=== PATIENT | male | born 1970 | race Caucasian/White ===

== ENCOUNTER 2019-09-21 00:38 | Observation (INO) | payer BC, SELFPAY ==
[2019-09-21] VITALS (9 sets, daily range): BP systolic 103–156; BP diastolic 71–100; PULSE 62–96; RESP 13–19; TEMP 36.4–36.8; O2SAT 97–100; BMI 23.4
--- NOTE | ~2019-09-21 | XR_ITS ---
EXAMINATION: XR barium swallow modified DATE: 09/22/2019 09:24 INDICATION: Dysphagia. TECHNIQUE: Modified barium esophagram was performed by myself to administered fluoroscopy, in conjun ction with speech pathologist who administered barium in varying consistencies as per speech patholog ist documentation. This was recorded on tape. A single fluoroscopic spot image was recorded. The DA P for this procedure was 1.95 Gycm2. Fluoroscopy exposure time was 1.9 minutes. FINDINGS: Oral stage: Adequate function. Pharyngeal phase: Vallecular and piriform sinus residue present which clears with additional swallows . Laryngeal penetration: None. Aspiration: None. Laryngeal sensitivity: Present. IMPRESSION: Vallecular and piriform sinus residue which clears with additional swallows. Please refe r to speech pathologist findings and specific feeding recommendations. Reviewed, dictated and finalized at location A. F APPRAISER IMPRESSION: Vallecular and piriform sinus residue which clears with additional swallows. Please refer to speech pathologist findings and specific feeding rec ommendations.
--- NOTE | ~2019-09-21 | CT_ITS ---
EXAMINATION: CTA chest PE protocol DATE: 09/21/2019 01:51 INDICATION: Left-sided chest pain TECHNIQUE: Computed tomography angiography (CTA) of the chest was performed with 100 mL Omnipaque-350 intravenous contrast timed to evaluate the pulmonary arteries. Coronal maximum intensity projection 3D-reconstructions were created by the technologist. The dose-length product (DLP) was 326.28 mGy-cm. Automated exposure control and iterative reconstruction technique were employed. COMPARISON: 01/29/2019 FINDINGS: The pulmonary arteries are well-opacified. No pulmonary embolism is identified. There is a 4.9 x 3.2 cm thick walled cavitary mass of the left lower lobe which has previously undergone biopsy. There is a 3.2 x 1.4 cm cavitary mass of the left lower lobe which also demonstrates decrease in siz e. There is no significant change in innumerable small upper lobe predominant centrilobular groundgla ss opacities. There is a small left pleural effusion. No pneumothorax is identified. The heart size i s normal. There is chronic mild mediastinal and bilateral hilar lymphadenopathy. There is mild thorac ic spondylosis. IMPRESSION: 1. No pulmonary embolism. 2. Decrease in size of cavitary masses of the lower lobes, consistent with biopsy-proven chronic necr otizing granulomatous inflammation. 3. Unchanged upper lobe predominance centrilobular groundglass opacities with differential as previou sly described including atypical pneumonia and hypersensitivity pneumonitis. 4. Chronic mild mediastinal and bilateral hilar lymphadenopathy, likely reactive. Reviewed, dictated and finalized at location A. [employer] IMPRESSION: 1. No pulmonary embolism. 2. Decrease in size of cavitary masses of the lower lobes, consistent with biop sy-proven chronic necrotizing granulomatous inflammation. 3. Unchanged upper lobe predominance centrilobular groundglass opacities with d ifferential as previously described including atypical pneumonia and hypersensi tivity pneumonitis. 4. Chronic mild mediastinal and bilateral hilar lymphadenopathy, likely reactiv e.
--- NOTE | 2019-09-21 00:53 | ECG_ITS ---
Measurements Intervals [place] Rate: 92 P: 54 KS: 126 QRS: 9 QRSD: 69 T: 44 QT: 323 QTc: 401 Interpretive Statements SINUS RHYTHM BASELINE ARTIFACT- I, II, III, AVR, AVL, AVF, V1 NORMAL ECG Electronically Signed On 09-21-2019 7:08:05 VISUAL MERCHANDISING MANAGER by Benjamin Hardin D.O.
[2019-09-21] MEDS: ASPIRIN 81 MG CHEWABLE TABLET 324 MG PO (00:56)
--- NOTE | 2019-09-21 01:01 | ED.CHESTPAIN ---
HPI - Chest Pain General Chief Complaint: Chest Pain Stated Complaint: chest pain Time Seen by Provider: 09/21/19 00:46 Source: patient and RN notes reviewed Mode of arrival: ambulatory Limitations: no limitations History of Present Illness HPI narrative: Pt is a 49 y/o male who presents to the ED with c/o left-sided chest pain which began at 2230 tonight. He states the pain feels like a soreness. Pt states he was getting into bed when the pain began, and has progressively worsened since onset. He reports his pain is aggravated when he takes a deep breath or when he is laying down. He denies a cough, a fever, chills, diaphoresis, or BLE edema. MD complaint: chest pain (left-sided) Onset (ago): hour(s) (2230 tonight) Timing of current episode: constant and increasing (since onset) Prior episodes: No Onset: during rest (getting into bed) Pain location: left chest Pain radiation: none Quality: other (soreness) Relieving factors: nothing Exacerbating factors: other (laying down; taking a deep breath) Associated symptoms: other (none) Related Data Home Medications Medication Instructions Recorded Confirmed No Home Medications 09/21/19 09/21/19 Allergies Allergy/AdvReac Type Severity Reaction Status Date / Time amoxicillin Allergy Unknown Rash Verified 09/21/19 03:56 Review of Systems Review of Systems: All systems reviewed & are unremarkable except as noted in HPI and below Constitutional: Constitutional: Denies chills and Denies fever(s) Cardiovascular: Cardiovascular: Reports chest pain (left-sided), Denies diaphoresis and Denies leg edema (BLE) Respiratory: Respiratory: Denies cough PMFSH Past Medical History Medical History (Updated 09/21/19 @ 16:39 by Leandro Erickson MD) Histoplasmosis Surgical History Surgical History (Updated 09/21/19 @ 16:39 by Leandro Erickson MD) History of lung biopsy Family History Family History (Updated 12/23/18 @ 09:53 by DOCTOR UNKNOWN) Father Diabetes mellitus Mother Diabetes mellitus Social History Social History Smoking packs per day: 1 Smoking cigarettes per day: 20.0 Years smoked: 30 Smoking pack-years: 30.00 Smoking status: Heavy tobacco smoker Tobacco type: cigarettes Additional smoking assessment comments: pt states he wants to quit smoking Alcohol intake: former Substance use: current Substance use type: marijuana Other substance usage details: pt states he uses marijuana to manage pain Gender identity (if verbalized by the patient): Male Spiritual care concerns: No Agree to blood products: Yes Course Course Emergency Course: Patient informed of results. Suspect reactivation of his histoplasmosis. He saw Dr. Painter Everardo Ridley previously for his treatment and had been on 6 months of itraconazole. Patient also reports history of chronically elevated white blood cell count but is unsure what the values have been in the past. Will start on micafungin as that is what we have on formulary. Admit to the hospitalist service. Vital Signs Vital signs: Vital Signs Temperature 98.3 F 09/21/19 00:43 Pulse Rate 90 09/21/19 00:43 Respiratory Rate 19 09/21/19 00:43 Blood Pressure 156/100 H 09/21/19 00:43 Pulse Oximetry 98 09/21/19 00:43 Temperature 97.8 F 09/21/19 14:00 Pulse Rate 83 09/21/19 14:00 Respiratory Rate 16 09/21/19 14:00 Blood Pressure 121/80 09/21/19 14:00 Pulse Oximetry 99 09/21/19 14:00 MDM - Chest Pain Lab Data Result diagrams: 09/21/19 01:01 09/21/19 01:01 Labs: Lab Results 09/21/19 09/21/19 09/21/19 Range/Units 01:01 01:01 01:01 WBC 22.8 H (4.5-10.0) K/mm3 RBC 5.14 (4.6-6.20) M/mm3 Hgb 15.3 (14.0-18.0) g/dL Hct 46.1 (42.0-52.0) % MCV 89.7 (80-100) fl MCH 29.8 (26-34) pg MCHC 33.2 (32-36) g/dl RDW 12.9 (11.5-14.5) % Plt Count 329 (150-375) k/mm3 MPV 9.4 (7.4-10.4) fl Im
[2019-09-21 01:08] LABS: Basophils Absolute Auto 0.1 K/mm3 (0.0-0.1); Basophils Percent Auto 0.6 % (0.2-1.2); Eosinophils Absolute Auto 0.5 K/mm3 (0-0.3); Eosinophils Percent Auto 2.4 % (0-4.4); Hematocrit 46.1 % (42.0-52.0); Hemoglobin 15.3 g/dL (14.0-18.0); Immature Granulocyte Absolute 0.12 K/mm3 (0.00-0.031); Immature Granulocyte Percent A 0.5 % (0-0.5); Lymphocytes Absolute Auto 3.02 K/mm3 (0.9-3.2); Lymphocytes Percent Auto 13.3 % (18.3-44.2); Mean Corpuscular HGB Conc 33.2 g/dl (32-36); Mean Corpuscular Hemoglobin 29.8 pg (26-34); Mean Corpuscular Volume 89.7 fl (80-100); Mean Platelet Volume 9.4 fl (7.4-10.4); Monocytes Absolute Auto 1.7 K/mm3 (0.1-0.6); Monocytes Percent Auto 7.5 % (2.6-8.5); Neutrophils Absolute Auto 17.3 K/mm3 (1.3-6.7); Neutrophils Percent Auto 75.7 % (45.5-73.1); Platelet Count Result 329 k/mm3 (150-375); Red Blood Count 5.14 M/mm3 (4.6-6.20); Red Cell Distribution Width 12.9 % (11.5-14.5); White Blood Count 22.8 K/mm3 (4.5-10.0)
[2019-09-21] MEDS: MORPHINE SULFATE 4 MG/ML INJ IV PUSH ×4 (01:15→15:55)
[2019-09-21 01:17] LABS: INR 0.8; Prothrombin Time 11.2 Seconds (11.1-14.7)
[2019-09-21 01:18] LABS: Partial Thromboplastin Time 34.3 SECONDS (22.3-36.8)
[2019-09-21 01:35] LABS: Blood Urea Nitrogen 17 mg/dL (9-20); Calcium 10.4 mg/dL (8.4-10.2); Carbon Dioxide 31 mmol/L (22-30); Chloride 97 mmol/L (98-107); Estimated CRCL calculation 85 ml/min; Estimated Glomerular Filt Rate > 60; Glucose 104 mg/dL (75-110); Potassium 3.6 mmol/L (3.4-5.0); Sodium 139 mmol/L (137-145)
[2019-09-21 01:46] LABS: Troponin I < 0.012 ng/mL (0.000-0.034)
[2019-09-21 04:15] LABS: Troponin I < 0.012 ng/mL (0.000-0.034)
--- NOTE | 2019-09-21 05:15 | ADMGEN ---
This patient, Tristin Marques, was admitted to 3 [facility] Surg Room 302-01. Patient/family oriented to hospital policies and general routines including ID bracelet, bed and alarms, visiting hours, pain management, procedures, bathroom and other care routines, personal items, smoking policy, room service/diet, and visiting hours. Valuables list has been completed. Information on how to activate the Rapid Response Team has been discussed. Patient/Family are encouraged to report perceived risks to care and to ask questions if they do not understand what they are told or what they should do.
[2019-09-21 07:53] LABS: Troponin I < 0.012 ng/mL (0.000-0.034)
[2019-09-21] MEDS: MICAFUNGIN SODIUM 100 MG in SODIUM CHLORIDE 0.9% IV 100 ML IVPB (08:53)
--- NOTE | 2019-09-21 14:31 | ECHO_ITS ---
Patient Info Name: Tirstin Marques Age: 49 years : 1970 Gender: Male Ht: 69 in Wt: 158 lbs BSA: 1.87 m2 HR: 83 bpm BP: 121 / 80 mmHg Heart Rhythm: Sinus Rhythm Technical Quality: Fair Exam Date: 09/21/2019 2:56 PM Exam Location: [facility] Card Pulmonary Patient Status: Outpatient Admit Date: 09/21/2019 Staff Ordering Physician: Kimberly Nance PA-C Senior Systems Administrator: Jaylin Muñiz RDCS Attending Provider: Melva Wong DO Referring Physician: Lee Ann RUTLEDGE; Exam Type: CA echo doppler color flow Study Info Indications R07.89 - Other chest pain Complete two-dimensional, color flow and Doppler transthoracic echocardiogram is performed. Summary 1. Left ventricular chamber size, wall thickness, systolic function are normal with no regional wall motion abnormalities with an estimated ejection fraction of >70%. Possible diastolic dysfunction. 2. No pulmonary hypertension, estimated pulmonary arterial systolic pressure is 31 mmHg. 3. No significant valve disease. 4. Normal sinus rhythm. Left Ventricle Left ventricular chamber size, wall thickness, systolic function are normal with no regional wall motion abnormalities with an estimated ejection fraction of >70%. Possible diastolic dysfunction. Left ventricular chamber dimension is normal. Left ventricular systolic function is normal, estimated at >70%. There is no increased left ventricular wall thickness. Left ventricular septal wall motion is normal. The left ventricular diastolic function is grade III diastolic dysfunction. Right Ventricle Right ventricular chamber dimension is normal. Right ventricular systolic function is normal. Left Atria Left atrial chamber dimension is normal. Right Atria Right atrial chamber dimension is normal. Aortic Valve The aortic valve is trileaflet. There is no aortic valve sclerosis. There is no aortic valve stenosis. There is no aortic valve regurgitation. Pulmonic Valve The pulmonic valve is normal. There is no pulmonic valve stenosis. There is no pulmonic regurgitation. Mitral Valve The mitral valve has normal leaflets. There is no mitral valve stenosis. There is trace mitral valve regurgitation. Tricuspid Valve The tricuspid valve leaflets are normal. There is no significant tricuspid valve stenosis. There is trace tricuspid valve regurgitation. No pulmonary hypertension, estimated pulmonary arterial systolic pressure is 31 mmHg. Pericardium/Pleural The pericardium appears normal. There is no pericardial effusion. Inferior Vena Cava Normal inferior vena cava with >50% collapse upon inspiration consistent with normal right atrial pressure, 10 mmHg. Aorta The aortic root size at the sinus of Valsalva is normal. The prox ascending aorta size is normal. Left Ventricular Outflow Tract Name Value Normal LVOT 2D LVOT Diameter 2.0 cm LVOT Doppler LVOT Peak Velocity 107 cm/s LVOT Peak Gradient 5 mmHg LVOT Mean Gradient 2 mmHg LVOT VTI 23 cm LV
--- NOTE | 2019-09-21 14:50 | PM.IMHP ---
H&P: HPI History of Present Illness Chief complaint: Left chest pain. Narrative: Tristin Marques is a 49 year old male with history of histoplasmosis who presented to the emergency department just after midnight for evaluation of chest pain. He reports a gradual onset of left anterolateral chest pain last evening at around 22:30. He describes a pleuritic pain, as it is sharp and shooting, worse with cough and deep inspiration. The pain does not radiate. It seems to be worse when lying supine. He assumed that it was pleurisy as he has had that before. Unfortunately the pain became quite severe and thus he came in for evaluation. No pulmonary embolism was noted on CTA of the chest. It was also noted that he had a decrease in the size of cavitary masses of the lower lobes, consistent with biopsy-proven chronic necrotizing granulomatous inflammation as well as other chronic findings. White blood cell count was nearly 23,000 with an increase in neutrophils on automated differential. There was concern for active infection and he was admitted in that setting. He did have nausea and emesis x1 this morning but that has since resolved. With further questioning, he has not had fever, chills, or sweats. Weight has remained stable. he has chronic hip pain, which is unchanged, and he has had no other body aches. He has not had a cough. Most nights he has mild sinus congestion for which she uses nasal spray, and that is unchanged. He does suffer from GERD and rare dysphagia, without concerns for aspiration. He has not had exertional chest pain. No palpitations or lower extremity edema. Review of Systems Review of Systems: Narrative: Twelve systems were reviewed with pertinent positives and negatives as per HPI. His weight fluctuates between 150 to 180 pounds ?depending on how hungry I am.? Apparently he does not have a big appetite. He sleeps poorly, and has since he was a child. No issues falling asleep with trouble is mainly with staying asleep. He denies PND and history of sleep apnea. No diarrhea. No dysuria. Except as documented, all other systems were reviewed and are negative. [facility]LY [facility] Past Medical History Medical History (Updated 09/21/19 @ 16:58 by Kimberly Nance PA-C) GERD (gastroesophageal reflux disease) Histoplasmosis After an extensive workup, he was diagnosed with histoplasmosis and he finished a 6 month course of itraconazole and July 2019. Hyperlipidemia Osteoarthritis of hips, bilateral Tobacco dependence Surgical History Surgical History (Updated 09/21/19 @ 16:46 by Kimberly Nance PA-C) History of lung biopsy January 2019 demonstrating chronic necrotizing granulomatous inflammation. Status post tonsillectomy Family History Family History Father Diabetes mellitus Mother Diabetes mellitus Social History Social History (Updated 09/21/19 @ 16:49 by Kimberly Nance PA-C) Social History: The patient lives in [place] with his girlfriend. 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 He designates his mother, Christine, as his surrogate decision maker and he wishes to be a full code. He smokes 1 pack of cigarettes per day and has for over 30 years. He used to consume alcohol heavily, but has abstained since 2012. He does smoke marijuana to help with arthritic pain. Smoking packs per day: 1 Smoking cigarettes per day: 20.0 Years smoked: 30 Smoking pack-years: 30.00 Gender identity (if verbalized by the patient): Male Spiritual care concerns: No Agree to blood products: Yes Meds Home Medications and Allergies Home Medications Medication Instructions Recorded Confirmed Type No Home Medications 09/21/19 09/21/19 History Allergies Allergy/AdvReac Type Severity Reaction Status Date / Time amoxicillin Allergy Unknown Rash Verified 09/21/19 03:56 Vital Signs Vital Signs - 24 hr 09/21/19 00:43 09/21/19 00:45
[2019-09-21] MEDS: PANTOPRAZOLE 40 MG TABLET PO (15:55)
--- NOTE | 2019-09-21 19:23 | PM.PNPUL ---
Subjective Date/time seen: 09/21/19 19:23 Thank you for the consult. Please see dictation#[id number] A/P 1. Cavitary lesions, confirmed histoplasmosis 02/12/2019, on itraconazole b.i.d through 2018 2. Left sided anterior chest pain; I do not think is due to the histoplasmosis. May have some pleurisy, however has no rub. Might be musculo-skeletal. 3. Smoker; marijuana and tobacco; advised to quit. 4. Shortness of breath with exertion Check urine for Histoplamsis antigen, sputum for fungal smear and culture & Gram stain C&S, Symbicort for shortness of breath +/- obstructive lung disease. IV Micafungin. ID consult is pending. Stable saturation on room air, 98%. Objective Data Vital Signs Vital Signs: Vital Signs - 24 hr 09/21/19 00:43 09/21/19 00:45 09/21/19 00:52 Temperature 36.8 C Pulse Rate 90 96 88 Respiratory Rate 19 18 Blood Pressure 156/100 H 117/94 H Pulse Oximetry 98 100 09/21/19 01:55 09/21/19 03:43 09/21/19 04:30 Temperature Pulse Rate 62 64 Respiratory Rate 13 16 Blood Pressure 104/73 103/74 Pulse Oximetry 97 99 99 09/21/19 05:10 09/21/19 14:00 Temperature 36.4 C 36.6 C Pulse Rate 66 83 Respiratory Rate 16 16 Blood Pressure 112/77 121/80 Pulse Oximetry 98 99 Meds/Results Medications: Active Medications Generic Name Dose Route Start Last Admin Trade Name Bakariq PRN Reason Stop Dose Admin Acetaminophen 650 mg 09/21/19 04:26 Tylenol Tablet PO Q4H PRN Mild Pain (1-3) or Fever Hydrocodone Bitart/Acetaminophen 1 tab 09/21/19 04:26 [place] 5-325 Mg PO Q4H PRN Pain Rated 4-6 Micafungin Sodium 100 mg/ 100 mls @ 100 mls/hr 09/21/19 09:00 09/21/19 10:00 Sodium Chloride IVPB 100 mls/hr DAILY JIMENEZ Infusion Morphine Sulfate 4 mg 09/21/19 04:26 09/21/19 15:55 Morphine Sulfate Inj IV PUSH 4 mg Q2H PRN Administration Pain Rated 7-10 Nicotine 1 patch 09/21/19 21:00 Nicoderm Cq 21 Mg TRANSDERM [facility] Ondansetron HCl 4 mg 09/21/19 04:26 Zofran Inj IV PUSH Q4H PRN Nausea Pantoprazole Sodium 40 mg 09/22/19 09:00 Protonix PO [facility] Radiology Results: ITS Impressions Chest CTA 09/21/19 07:47 IMPRESSION: 1. No pulmonary embolism. 2. Decrease in size of cavitary masses of the lower lobes, consistent with biopsy-proven chronic necrotizing granulomatous inflammation. 3. Unchanged upper lobe predominance centrilobular groundglass opacities with differential as previously described including atypical pneumonia and hypersensitivity pneumonitis. 4. Chronic mild mediastinal and bilateral hilar lymphadenopathy, likely reactive. Labs Labs: Laboratory Results - last 24 hr 09/21/19 09/21/19 09/21/19 01:01 01:01 01:01 WBC 22.8 H RBC 5.14 Hgb 15.3 Hct 46.1 MCV 89.7 MCH 29.8 MCHC 33.2 RDW 12.9 Plt Count 329 MPV 9.4 Immature Gran % (Auto) 0.5 Neut % (Auto) 75.7 H Lymph % (Auto) 13.3 L [place] % (Auto) 7.5 Eos % (Auto) 2.4 Baso % (Auto) 0.6 Lymph # (Auto) 3.02 [place] # (Auto) 1.7 H Eos # (Auto) 0.5 H Baso # (Auto) 0.1 Abs Immat Gran (auto) 0.12 H Absolute Neuts (auto) 17.3 H Absolute Nucleated RBC 0.0 Nucleated RBC % 0.0 PT 11.2 INR 0.8 APTT 34.3 Sodium 139 Potassium 3.6 Chloride 97 L Carbon Dioxide 31 H BUN 17 Creatinine 0.90 Estim Creat Clear Calc 85 Estimated GFR > 60 Glucose 104 Calcium 10.4 H Troponin I < 0.012 09/21/19 09/21/19 03:44 07:09 WBC RBC Hgb Hct MCV MCH MCHC RDW Plt Count MPV Immature Gran % (Auto) Neut % (Auto) Lymph % (Auto) [place] % (Auto) Eos % (Auto) Baso % (Auto) Lymph # (Auto) [place] # (Auto) Eos # (Auto) Baso # (Auto) Abs Immat Gran (auto) Absolute Neuts (auto) Absolute Nucleated RBC Nucleated RBC % PT INR APTT Sodium Potassium Chloride Carbon Dioxide BUN
[2019-09-21] MEDS: NICOTINE (*PBKC) 21 MG PATCH 1 PATCH TRANSDERM (19:50)
--- NOTE | 2019-09-21 23:53 | CONS_ITS ---
DATE OF CONSULTATION: 09/21/2019 REASON FOR THE CONSULTATION: Kimberly Nance P.A.-C consulted me to see the patient for cavitary histoplasmosis lesions, worsening. HISTORY: This patient is a 49-year-old male, who I have seen in the past. In January, I sent him for biopsy of cavitary lesion of the lungs. He had confirmed histoplasmosis and was treated by Dr. Rivera. The patient was on itraconazole 200 mg twice a day. I have not seen him in the office since last summer as Dr. Rivera was managing his antifungal treatment. The patient continues to smoke marijuana twice a day and coughs whitish green sputum after smoking marijuana. The patient says that he quit taking his itraconazole at the end of July and he did have 1 month's prescription left. He states that he was discharged from treatment by Dr. Rivera in July. I do not see any documentation. He developed intense left anterior chest wall pain. This worsened around 11:30 p.m. last night. It is worse with taking a deep breath. He has not coughed any blood. He said that it was worse when he was lying supine. He presented to the emergency department, had a CTA of the chest that showed improvement in sizes of the bilateral cavitary lesions. He did not have a pulmonary embolus. His white blood cell count was elevated at 22,000. He states his white count is always high like this. However, with the new EMR, I can only see the current white blood cell count 22.8 with 76% neutrophils. His vital signs are stable, respiratory rate 16 and saturation is 99% on room air. He is not running a fever. ALLERGIES: AMOXICILLIN CAUSES A RASH. HOME MEDICATIONS: This lists no home medications. However, he said he was on itraconazole 200 mg twice a day through the end of July. Current hospital medications: 1. Hydrocodone/acetaminophen 5/325. 2. Micafungin 100 mg IV daily. 3. Morphine 4 mg IV q.2 hours p.r.n. pain. 4. Nicoderm patch 21 mg a day. 5. Pantoprazole 40 mg a day. PAST MEDICAL HISTORY: 1. History of histoplasmosis in the cavitary lesions by biopsy in January 2019. 2. Gastroesophageal reflux disease. 3. Hyperlipidemia. 4. Osteoarthritis of the hips. PAST SURGICAL HISTORY: 1. Lung biopsy. 2. Tonsillectomy. SOCIAL HISTORY: He lives with his girlfriend. He works as a cook in a longterm. Tobacco a pack per day for 30 years. He smokes marijuana twice a day. FAMILY HISTORY: Mother and father both have diabetes. REVIEW OF SYSTEMS: He denies any visual problems. He recently saw the eye doctor and was checked for histoplasmosis, does not have any eye involvement. Occasionally, he has a pale rash on his face. He does not have any leg swelling. His weight varies between 150 and 170 pounds. No change. The remainder of the 14-point review of systems is negative. PHYSICAL EXAMINATION: VITAL SIGNS: Height 1.75 m, weight 72 kg, BMI is 23.4, temperature 36.8, pulse 90, respirations 18, blood pressure 117/94, and saturation 98% on room air. GENERAL: This is an ill tempered 49-year-old man, in no acute pulmonary distress. He answers questions tersely. HEENT: Pupils are equal and reactive to light. No oral lesions. Adequate dentition. NECK: Supple without lymphadenopathy. CHEST: Reveals equal expansion. He has faint wheeze and squeak in the left base. There is no chest wall tenderness. CARDIOVASCULAR: Regular S1, S2 without a murmur or gallop. GASTROINTESTINAL: Positive bowel sounds. Soft, nontender. EXTREMITIES: No peripheral edema, clubbing, cyanosis, rash. DATA: Chest CT shows no PE. Decrease in size of cavitary lesions in the lower lobes, left is greater than right. Unchanged upper lobe centrilobular ground-glass opacities, differential includes atypical pneumonia and hyperse
[2019-09-22 05:58] VITALS: BP 116/78; PULSE 70; RESP 18; TEMP 36.5; O2SAT 97
--- NOTE | 2019-09-22 06:07 | PCRCNOTE ---
Window of time for administration has passed. See next scheduled administration.
[2019-09-22 08:30] LABS: Basophils Absolute Auto 0.1 K/mm3 (0.0-0.1); Basophils Percent Auto 0.7 % (0.2-1.2); Eosinophils Absolute Auto 0.5 K/mm3 (0-0.3); Eosinophils Percent Auto 3.2 % (0-4.4); Hematocrit 49.1 % (42.0-52.0); Hemoglobin 16.3 g/dL (14.0-18.0); Immature Granulocyte Absolute 0.05 K/mm3 (0.00-0.031); Immature Granulocyte Percent A 0.3 % (0-0.5); Lymphocytes Absolute Auto 2.78 K/mm3 (0.9-3.2); Lymphocytes Percent Auto 17.8 % (18.3-44.2); Mean Corpuscular HGB Conc 33.2 g/dl (32-36); Mean Corpuscular Hemoglobin 29.7 pg (26-34); Mean Corpuscular Volume 89.4 fl (80-100); Mean Platelet Volume 9.3 fl (7.4-10.4); Monocytes Absolute Auto 1.1 K/mm3 (0.1-0.6); Monocytes Percent Auto 6.9 % (2.6-8.5); Neutrophils Absolute Auto 11.1 K/mm3 (1.3-6.7); Neutrophils Percent Auto 71.1 % (45.5-73.1); Platelet Count Result 324 k/mm3 (150-375); Red Blood Count 5.49 M/mm3 (4.6-6.20); Red Cell Distribution Width 12.9 % (11.5-14.5); White Blood Count 15.6 K/mm3 (4.5-10.0)
[2019-09-22] MEDS: MICAFUNGIN SODIUM 100 MG in SODIUM CHLORIDE 0.9% IV 100 ML IVPB (08:42)
[2019-09-22] MEDS: PANTOPRAZOLE 40 MG TABLET PO (08:43)
[2019-09-22] MEDS: NICOTINE (*PBKC) 21 MG PATCH 1 PATCH TRANSDERM (08:43)
[2019-09-22 08:46] LABS: Blood Urea Nitrogen 15 mg/dL (9-20); Calcium 10.3 mg/dL (8.4-10.2); Carbon Dioxide 33 mmol/L (22-30); Chloride 96 mmol/L (98-107); Estimated CRCL calculation 95 ml/min; Estimated Glomerular Filt Rate > 60; Glucose 161 mg/dL (75-110); Magnesium 1.8 mg/dL (1.6-2.3); Potassium 4.1 mmol/L (3.4-5.0); Sodium 140 mmol/L (137-145)
--- NOTE | 2019-09-22 10:15 | PCSTNOTE ---
Please refer to the Modified Barium Swallow Evaluation in the EMR.
[2019-09-22 14:00] VITALS: BP 143/88; PULSE 70; RESP 16; TEMP 36.8; O2SAT 100
--- NOTE | 2019-09-22 14:04 | WPDINFPN2 ---
Progress Note: A&P Assessment and Plan (1) Left-sided chest pain: Code(s): R07.9 - Chest pain, unspecified Status: Acute Assessment and Plan: IMP 1. Leukocytosis and Left pleuritic chest pain 2. Past histoplasmosis REC Ceftriaxone and azithro until wbc lower than 12, then oral. CT and clinical f/u for the histoplasmosis (treated and radiographically better). Subjective Date/time seen: 09/22/19 14:04 Objective Data Vital Signs Vital Signs: Vital Signs - 24 hr 09/21/19 22:00 09/22/19 05:58 Temperature 36.5 C 36.5 C Pulse Rate 64 70 Respiratory Rate 18 18 Blood Pressure 123/71 116/78 Pulse Oximetry 100 97 Intake/Output Intake/Output: Intake & Output 09/19/19 09/20/19 09/21/19 09/22/19 23:59 23:59 23:59 23:59 Intake Total 580 650 Balance 580 650 Meds/Results Medications: Active Medications Generic Name Dose Route Start Last Admin Trade Name Freq PRN Reason Stop Dose Admin Acetaminophen 650 mg 09/21/19 04:26 Tylenol Tablet PO Q4H PRN Mild Pain (1-3) or Fever Hydrocodone Bitart/Acetaminophen 1 tab 09/21/19 04:26 09/22/19 03:40 [place] 5-325 Mg PO 1 tab Q4H PRN Administration Pain Rated 4-6 Budesonide/Formoterol Fumarate 2 puff 09/21/19 20:00 09/22/19 08:21 Symbicort 160-4.5 Mcg (*Sp) Inhaler INHALATION 2 puff Q12HRT JIMENEZ Administration Micafungin Sodium 100 mg/ 100 mls @ 100 mls/hr 09/21/19 09:00 09/22/19 09:55 Sodium Chloride IVPB Infused DAILY JIMENEZ Infusion Morphine Sulfate 4 mg 09/21/19 04:26 09/21/19 15:55 Morphine Sulfate Inj IV PUSH 4 mg Q2H PRN Administration Pain Rated 7-10 Nicotine 1 patch 09/21/19 21:00 09/22/19 08:43 Nicoderm Cq 21 Mg TRANSDERM 1 patch QAM JIMENEZ Administration Ondansetron HCl 4 mg 09/21/19 04:26 Zofran Inj IV PUSH Q4H PRN Nausea Pantoprazole Sodium 40 mg 09/22/19 09:00 09/22/19 08:43 Protonix PO 40 mg QAM JIMENEZ Administration Radiology Results: ITS Impressions Chest CTA 09/21/19 07:47 IMPRESSION: 1. No pulmonary embolism. 2. Decrease in size of cavitary masses of the lower lobes, consistent with biopsy-proven chronic necrotizing granulomatous inflammation. 3. Unchanged upper lobe predominance centrilobular groundglass opacities with differential as previously described including atypical pneumonia and hypersensitivity pneumonitis. 4. Chronic mild mediastinal and bilateral hilar lymphadenopathy, likely reactive. Modified Barium Swallow 09/22/19 10:06 IMPRESSION: Vallecular and piriform sinus residue which clears with additional swallows. Please refer to speech pathologist findings and specific feeding recommendations. Labs Labs: Laboratory Results - last 24 hr 09/22/19 09/22/19 08:23 08:23 WBC 15.6 H RBC 5.49 Hgb 16.3 Hct 49.1 MCV 89.4 MCH 29.7 MCHC 33.2 RDW 12.9 Plt Count 324 MPV 9.3 Immature Gran % (Auto) 0.3 Neut % (Auto) 71.1 Lymph % (Auto) 17.8 L Major % (Auto) 6.9 Eos % (Auto) 3.2 Baso % (Auto) 0.7 Lymph # (Auto) 2.78 Major # (Auto) 1.1 H Eos # (Auto) 0.5 H Baso # (Auto) 0.1 Abs Immat Gran (auto) 0.05 H Absolute Neuts (auto) 11.1 H Absolute Nucleated RBC 0.0 Nucleated RBC % 0.0 Sodium 140 Potassium 4.1 Chloride 96 L Carbon Dioxide 33 H BUN 15 Creatinine 0.80 Estim Creat Clear Calc 95 Estimated GFR > 60 Glucose 161 H Calcium 10.3 H Magnesium 1.8
[2019-09-22] MEDS: AZITHROMYCIN 250 MG TABLET 500 MG PO (14:45)
--- NOTE | 2019-09-22 15:02 | PM.IMPN ---
Progress Note: A&P Assessment and Plan (1) Left-sided chest pain: Code(s): R07.9 - Chest pain, unspecified Status: Acute Assessment and Plan: Chest pain is pleuritic in nature, possibly pleurisy; this is improving today. Unlikely to be cardiac in etiology as he has ruled out for acute coronary syndrome by serial troponins and has an unremarkable EKG. Echocardiogram grossly unremarkable Continue with pain control for now Dr. Peña and Dr. Rivera following and appreciate input. (2) Abnormal chest CT: Code(s): R93.89 - Abnormal findings on diagnostic imaging of other specified body structures Status: Acute Assessment and Plan: A decrease in size of cavitary masses in the lower lobes was noted as well as unchanged upper lobe predominant ground-glass opacities. Leukocytosis noted, improving since yesterday; 15.6k today Swallow study today and ST recommended regular diet, thin liquids Drs. Peña and and appreciate input Per ID recommendations, will continue with IV antibiotics and stop micafungin (3) Leukocytosis: Code(s): D72.829 - Elevated white blood cell count, unspecified Status: Acute Assessment and Plan: Patient noted that his white blood cell count is chronically elevated, but is higher than usual on presentation; this has improved to 15.6k today. He does not give a very good history to suggest underlying active infection. He was started on micafungin in the emergency department but has been d/c per ID recommendations Continue IV antibiotics. Plan to switch to PO if WBC down to below 12k (4) History of histoplasmosis: Code(s): Z86.19 - Personal history of other infectious and parasitic diseases Status: Acute Assessment and Plan: Empiric micafungin given leukocytosis and CT findings, however has been since d/c by ID. Will likely need outpatient follow up (5) Tobacco dependence: Code(s): F17.200 - Nicotine dependence, unspecified, uncomplicated Status: Acute Assessment and Plan: Smoking cessation will be essential for overall health, including lung Declines the need for nicotine patch. Provide if needed. Subjective Date/time seen: 09/22/19 15:02 Interval history: Patient is a 49 yo M with history of histoplasmosis who is here for evaluation/management for pleuritic chest pain. Patient states his pain is improving today; states pain medication is helping. He is overall breathing easier today. SOB is improving, particularly when ambulating. He has no other complaints today. States his swallow study went well today. Denies f/c/ns, headaches, dizziness, lightheadedness, changes in v/h, palpitations, sob/cough, n/v/d/c, abd pain, dysphagia, melena, brbpr, dysuria, hematuria, cloudy urine, calf pain/swelling, s/sx of stroke Review of Systems Review of Systems: All systems reviewed & are unremarkable except as noted in HPI and below Exam Narrative: Exam Narrative: Patient sitting upright in bed at time of visit. Const: General: healthy appearing, comfortable, no acute distress, well developed and alert Nutritional Appearance: well nourished Orientation/consciousness: patient oriented x3 HENMT: Head: normocephalic and atraumatic General nose exam: Normal nares present Face and sinus: face symmetric Mouth: Yes lip normal and Yes moist mucous membranes Teeth and gingiva: fair dentition Throat: posterior oropharynx normal and uvula midline Eyes: General: appearance normal, both eyes and all related structures Sclera: sclerae normal Pupils: Equal, round and reactive pupils present EOM: EOMs intact bilaterally Neck: Neck: trachea midline, supple and no JVD Resp: Effort & Inspection: normal respiratory effort Auscultation:
--- NOTE | 2019-09-22 19:45 | PM.PNPUL ---
Progress Note: A&P Assessment and Plan (1) Abnormal chest CT: Code(s): R93.89 - Abnormal findings on diagnostic imaging of other specified body structures Status: Acute Assessment and Plan: He has bilateral cavitary lesions, improving on recent chest CT. He is on azithromycin and Rocephin for treatment of his left chest pain, without a diagnosis of anything specifically. These cavitary areas are not new. He will continue this same treatment until WBc is less than 12 K. (2) Left-sided chest pain: Code(s): R07.9 - Chest pain, unspecified Status: Acute Assessment and Plan: Improved greatly. This area was not near the cavitary areas on the CXR. He is on Symbicort which may be helping airway resistance. He does not have a diagnosis of COPD or asthma, however does smoke. This inhaler may improve lung mechanics. (3) Tobacco dependence: Code(s): F17.200 - Nicotine dependence, unspecified, uncomplicated Status: Acute Assessment and Plan: Still smoking prior to admission, tobacco and marijuana. (4) History of histoplasmosis: Code(s): Z86.19 - Personal history of other infectious and parasitic diseases Status: Acute Assessment and Plan: Micafungin was stopped by Dr. Rivera. Subjective Date/time seen: 09/22/19 19:45 This 49 yo man is seen in follow up for shortness of breath with cavitary lung lesions due to chronic histoplasmosis, admitted with left chest pain. He feels much better today, less left anterior pleuritic chest wall pain, less shortness of breath. His wbc is decreasing now 15.6 down from 22K. His white blood cell count has been elevated on most lab draws over the last few years, with 2 normal ones in 2017 around 9 K. The urine for histoplasmosis antigen and sputum for Gram stain, and fungal studies have been sent, results pending. He started Symbicort yesterday. Review of Systems Review of Systems: Narrative: Less chest wall pain left side. Eating better, not upset. Breathing without distress. All systems reviewed & are unremarkable except as noted in HPI and below Cardiovascular: Cardiovascular: Denies chest pain Respiratory: Respiratory: Denies wheezing Exam Const: General: no acute distress Eyes: General: appearance normal, both eyes and all related structures Resp: Effort & Inspection: normal respiratory effort Auscultation: clear to auscultation bilaterally Cardio: Rate: regular rate Rhythm: regular rhythm Other: no edema GI: Auscultation: normal bowel sounds Skin: General skin exam: normal color Psych: Mental Status: mental status grossly normal Objective Data Vital Signs Vital Signs: Vital Signs - 24 hr 09/21/19 22:00 09/22/19 05:58 Temperature 36.5 C 36.5 C Pulse Rate 64 70 Respiratory Rate 18 18 Blood Pressure 123/71 116/78 Pulse Oximetry 100 97 Intake/Output Intake/Output: Intake & Output 09/19/19 09/20/19 09/21/19 09/22/19 23:59 23:59 23:59 23:59 Intake Total 580 1150 Output Total 350 Balance 580 800 Meds/Results Medications: Active Medications Generic Name Dose Route Start Last Admin Trade Name Freq PRN Reason Stop Dose Admin Acetaminophen 650 mg 09/22/19 15:17 Tylenol Tablet PO Q4H PRN Pain Rated 5 or Less Hydrocodone Bitart/Acetaminophen 1 tab 09/22/19 15:17 09/22/19 19:13 [place] 5-325 Mg PO 1 tab Q4H PRN Administration Pain Rated 6 or Greater Azithromycin 500 mg 09/22/19 14:10 09/22/19 14:45 Zithromax Tablet PO 500 mg DAILY JIMENEZ Administration Budesonide/Formoterol Fumarate 2 puff 09/21/19 20:00 09/22/19 08:21 Symbicort 160-4.5 Mcg (*Sp) Inhaler INHALATION 2 puff Q
[2019-09-22 22:00] VITALS: BP 124/78; PULSE 79; RESP 16; TEMP 36.7; O2SAT 98
[2019-09-23 00:47] VITALS: PULSE 78; RESP 16; O2SAT 95
[2019-09-23 05:55] VITALS: BP 125/79; PULSE 70; RESP 16; TEMP 36.6; O2SAT 100
[2019-09-23 05:57] LABS: Hematocrit 44.8 % (42.0-52.0); Mean Corpuscular HGB Conc 33.5 g/dl (32-36); Mean Corpuscular Hemoglobin 29.6 pg (26-34); Mean Corpuscular Volume 88.5 fl (80-100); Platelet Count Result 291 k/mm3 (150-375); Red Blood Count 5.06 M/mm3 (4.6-6.20); Red Cell Distribution Width 12.7 % (11.5-14.5); White Blood Count 8.9 K/mm3 (4.5-10.0)
[2019-09-23 06:04] LABS: Blood Urea Nitrogen 15 mg/dL (9-20); Calcium 9.8 mg/dL (8.4-10.2); Carbon Dioxide 30 mmol/L (22-30); Chloride 100 mmol/L (98-107); Estimated CRCL calculation 85 ml/min; Estimated Glomerular Filt Rate > 60; Glucose 113 mg/dL (75-110); Potassium 4.4 mmol/L (3.4-5.0); Sodium 139 mmol/L (137-145)
--- NOTE | 2019-09-23 06:17 | CONS_ITS ---
DATE OF CONSULTATION: 09/22/2019 REASON FOR CONSULTATION: Chest pain. HISTORY OF PRESENT ILLNESS: The patient is a 49-year-old male known to me from the office. He completed treatment for biopsy-proven histoplasmosis of the left lung about 1 month prior to admission with clinical resolution. He presented to the emergency room yesterday with 1 day of left lateral and low anterior chest pain, worse with a deep breath or with pressure. There was some radiation into the infrascapular area on the left side. He was admitted, he was started on micafungin. I was not notified of the consult until about 1 hour ago. No fever, chills, sweats, weight loss, nausea, or vomiting. There has been no chest trauma. He has had no sputum production. No hemoptysis. ALLERGIES: AMOXICILLIN CAUSED A RASH. HABITS: Ongoing tobacco. No alcohol since 2012. Occasional marijuana. PRESENT MEDICATIONS: No immunosuppressants. PAST MEDICAL HISTORY: In addition to the above, GERD, hyperlipidemia, osteoarthritis, tonsillectomy. REVIEW OF SYSTEMS: Allergic, immunologic, constitutional, pulmonary, ENT, GI, skin otherwise negative. FAMILY HISTORY: Not pertinent to his present illness. SOCIAL HISTORY: He works, lives locally and lives with his girlfriend. PHYSICAL EXAMINATION: GENERAL: This is a middle-aged male who appears his actual age. No acute distress. VITAL SIGNS: Afebrile, 70, 18, 116/78, 97% room air. SKIN: Warm and dry. No rashes. EENT: The conjunctivae are normal. Oral mucosa is well hydrated. No thrush. NECK: Without thyromegaly or meningismus. LUNGS: Diminished breath sounds at the left lung base, otherwise clear to auscultation and percussion. CHEST: No tenderness. No vesicles. CARDIAC: Regular rate and rhythm without murmur, gallop, or rub. ABDOMEN: Soft, nondistended. No organomegaly. EXTREMITIES: No clubbing, cyanosis, edema. RADIOLOGY: I personally reviewed his chest CT. Prior CT from January is not available for review. The present one demonstrates a pleural-based posterior left lower lung mass with cavitation. The radiologist has interpreted this as diminished in size since January. LABORATORY DATA: White count is 22.8, down to 15.6 today, hemoglobin 16.3, platelets are 324, differential is normal. Prothrombin time normal. Chemistry panel normal except for a chloride 96, CO2 of 33, glucose 161, calcium 10.3. ASSESSMENT: 1. Left-sided chest pain with leukocytosis, but without other clinical findings of infection. This could represent a viral or bacterial pleuritis. He has a small effusion, not large enough to merit thoracentesis. It is possible this could be fungal in nature as well as the above. Noninfectious causes of his leukocytosis are also possible but less likely. 2. Past histoplasmosis, treated with clinical success possibly with relapse, although the CT scan indicates otherwise. 3. Tobacco abuse. RECOMMENDATIONS: 1. Antibacterials in the form of ceftriaxone and azithromycin, hold micafungin. 2. Follow up white blood cell count and once less than 12,could probably be changed to oral cefdinir and azithromycin. 3. Clinical and radiographic followup of the histoplasmosis to ensure improvement over time. Thank you very much for asking me to see him. BIA VIRK M.D. [employer] BL[employer] P[employer] D Francine MT: [place]
[2019-09-23] MEDS: AZITHROMYCIN 250 MG TABLET 500 MG PO (09:13)
[2019-09-23] MEDS: PANTOPRAZOLE 40 MG TABLET PO (09:13)
[2019-09-23] MEDS: NICOTINE (*PBKC) 21 MG PATCH 1 PATCH TRANSDERM (09:14)
--- NOTE | 2019-09-23 10:46 | PM.DS ---
DS: Diagnosis Admitting Diagnosis Admitting Diagnosis: Chest pain, unspecified Discharge Diagnosis (1) Left-sided chest pain: Code(s): R07.9 - Chest pain, unspecified Status: Acute Assessment and Plan: Chest pain is pleuritic in nature, possibly pleurisy; this is improving again today. Unlikely to be cardiac in etiology as he has ruled out for acute coronary syndrome by serial troponins and has an unremarkable EKG. Echocardiogram grossly unremarkable Discharge to day with PO antibiotics per Dr. Rivera recommendations (cefdinir and azithro x 5 days) Follow up with Dr. Rivera in [address] Peña and Dr. Rivera following and appreciate input. (2) Abnormal chest CT: Code(s): R93.89 - Abnormal findings on diagnostic imaging of other specified body structures Status: Acute Assessment and Plan: A decrease in size of cavitary masses in the lower lobes was noted as well as unchanged upper lobe predominant ground-glass opacities. Leukocytosis noted during stay, improving since yesterday; 8.9k today Swallow study yesterday and ST recommended regular diet, thin liquids Drs. Peña and and appreciate input Per ID recommendations, will order Cefdinir 300 mg BID starting today for 5 days, and azithromycin 500 mg daily starting tomorrow for 5 days Follow up with Dr. Rivera in 1 month (3) Leukocytosis: Code(s): D72.829 - Elevated white blood cell count, unspecified Status: Acute Assessment and Plan: Patient noted that his white blood cell count is chronically elevated, but is higher than usual on presentation; this has improved to 8.9k today. He does not give a very good history to suggest underlying active infection. He was started on micafungin in the emergency department but has been d/c per ID recommendations IV rocephin and PO azithro during stay. Plan to switch to PO today for 5 days (4) History of histoplasmosis: Code(s): Z86.19 - Personal history of other infectious and parasitic diseases Status: Acute Assessment and Plan: Empiric micafungin given leukocytosis and CT findings, however has been since d/c by ID. As above, outpatient follow up with Dr. Rivera (5) Tobacco dependence: Code(s): F17.200 - Nicotine dependence, unspecified, uncomplicated Status: Acute Assessment and Plan: Smoking cessation will be essential for overall health. Patient states he is done smoking Declines the need for nicotine patch. DS: Summary Hospital Course Reason for hospitalization: Left sided chest pain; history of histoplasmosis Hospital Course: Patient is a 49 yo M with history of histoplasmosis who presented to the emergency department just after midnight on 09/21 for evaluation of chest pain. Patient stated he had a gradual onset of left anterolateral chest pain the evening prior and described it as pleuritic, sharp/shooting, worse with cough and deep inspiration; worse with lying supine; did not radiate. This prompted him to proceed to the ED when it progressively worsened. CTA of the chest in the ED showed decrease in size of cavitary masses in lower lobs, consistent with biopsy-proven chronic necrotizing granulomatous inflammation and other chronic findings. Please see H&P for further details. Presenting VS: BP 156/100, HR 90, RR 19, temp 98.3, sat 98% on RA Presenting Pertinent labs: WBC 22.8 (09/23 8.9). CBC, BMP, and coags otherwise unremarkable. Micro: Fungal culture - no fungal elements found. Sputum culture - gram stain contained 25 or more squamous epithelial cells. Culture not indicated based on gram stain Imagin/28 CTA chest IMPRESSION: 1. No pulmonary embolism. 2. Decrease in size of cavitary masses of the lower lobes, consistent with biopsy-p
--- NOTE | 2019-09-23 11:47 | WPDINFPN2 ---
Progress Note: A&P Assessment and Plan (1) Left-sided chest pain: Code(s): R07.9 - Chest pain, unspecified Status: Acute Assessment and Plan: IMP 1. Leukocytosis and Left pleuritic chest pain, better, suspect viral (less likely bacterial or fungal) pleuritis 2. Past histoplasmosis REC Cefdinir and azithro x 5 days. Ok home, see me in office, probable CT scan of chest at that time. Subjective Date/time seen: 09/23/19 11:47 Interval history: pain better. Hopes to go home Exam Narrative: Exam Narrative: afebrile Const: General: no acute distress Skin: General skin exam: normal color and no rashes or lesions noted Objective Data Vital Signs Vital Signs: Vital Signs - 24 hr 09/22/19 14:00 09/22/19 22:00 09/23/19 00:47 Temperature 36.8 C 36.7 C Pulse Rate 70 79 78 Respiratory Rate 16 16 16 Blood Pressure 143/88 H 124/78 Pulse Oximetry 100 98 95 09/23/19 05:55 Temperature 36.6 C Pulse Rate 70 Respiratory Rate 16 Blood Pressure 125/79 Pulse Oximetry 100 Intake/Output Intake/Output: Intake & Output 09/20/19 09/21/19 09/22/19 09/23/19 23:59 23:59 23:59 23:59 Intake Total 580 2280 400 Output Total 350 Balance 580 1930 400 Meds/Results Medications: Active Medications Generic Name Dose Route Start Last Admin Trade Name Freq PRN Reason Stop Dose Admin Acetaminophen 650 mg 09/22/19 15:17 Tylenol Tablet PO Q4H PRN Pain Rated 5 or Less Hydrocodone Bitart/Acetaminophen 1 tab 09/22/19 15:17 09/22/19 19:13 [place] 5-325 Mg PO 1 tab Q4H PRN Administration Pain Rated 6 or Greater Azithromycin 500 mg 09/22/19 14:10 09/23/19 09:13 Zithromax Tablet PO 500 mg DAILY JIMENEZ Administration Budesonide/Formoterol Fumarate 2 puff 09/21/19 20:00 09/23/19 08:16 Symbicort 160-4.5 Mcg (*Sp) Inhaler INHALATION 2 puff Q12HRT JIMENEZ Administration Ceftriaxone Sodium/Dextrose 1 gm in 50 mls @ 100 mls/hr 09/22/19 14:00 09/22/19 15:15 Rocephin 1 Gm/D5w 50 Ml IVPB Infused Q24H JIMENEZ Infusion Nicotine 1 patch 09/21/19 21:00 09/23/19 09:14 Nicoderm Cq 21 Mg TRANSDERM 1 patch QAM JIMENEZ Administration Pantoprazole Sodium 40 mg 09/22/19 09:00 09/23/19 09:13 Protonix PO 40 mg QAM JIMENEZ Administration Radiology Results: ITS Impressions Chest CTA 09/21/19 07:47 IMPRESSION: 1. No pulmonary embolism. 2. Decrease in size of cavitary masses of the lower lobes, consistent with biopsy-proven chronic necrotizing granulomatous inflammation. 3. Unchanged upper lobe predominance centrilobular groundglass opacities with differential as previously described including atypical pneumonia and hypersensitivity pneumonitis. 4. Chronic mild mediastinal and bilateral hilar lymphadenopathy, likely reactive. Modified Barium Swallow 09/22/19 10:06 IMPRESSION: Vallecular and piriform sinus residue which clears with additional swallows. Please refer to speech pathologist findings and specific feeding recommendations. Labs Labs: Laboratory Results - last 24 hr 09/23/19 09/23/19 05:37 05:37 WBC 8.9 RBC 5.06 Hgb 15.0 Hct 44.8 MCV 88.5 MCH 29.6 MCHC 33.5 RDW 12.7 Plt Count 291 MPV 9.0 Sodium 139 Potassium 4.4 Chloride 100 Carbon Dioxide 30 BUN 15 Creatinine 0.90 Estim Creat Clear Calc 85 Estimated GFR > 60 Glucose 113 H Calcium 9.8
== END 2019-09-23 12:00 | disposition home or self-care (01) ==
LOC: ANHED 01:04 → ANH3MEDSUR 04:34
PROVIDERS: Internal Medicine Critical Care Medicine; Internal Medicine Infectious Disease; Physician Assistant; Admitting Provider Internal Medicine; Emergency Provider Emergency Medicine; PCP Emergency Medicine; Visit Provider Internal Medicine
DX: R07.81 Pleurodynia (principal); R93.89 Abnormal findings on diagnostic imaging of other specified body structures; R13.10 Dysphagia, unspecified; D72.829 Elevated white blood cell count, unspecified; Z86.19 Personal history of other infectious and parasitic diseases; F17.210 Nicotine dependence, cigarettes, uncomplicated; F12.90 Cannabis use, unspecified, uncomplicated; E78.5 Hyperlipidemia, unspecified; K21.9 Gastro-esophageal reflux disease without esophagitis; M16.0 Bilateral primary osteoarthritis of hip; Z28.21 Immunization not carried out because of patient refusal; Z88.0 Allergy status to penicillin; Z88.1 Allergy status to other antibiotic agents
CPT/HCPCS: 36415; 71275; 80048; 83735; 84484; 85025; 85027; 85610; 85730; 87070; 87102; 87106; 87205; 87206; 87385; 92611; 93005; 93306; 94640; 96365; 96366; 96367; 96375; 96376; 99285; A9270; G0378; J0696; J2248; J2270; Q9967

== ENCOUNTER 2020-04-24 07:54 | Outpatient (CLI) | payer BC, SELFPAY ==
--- NOTE | ~2020-04-24 | CT_ITS ---
EXAMINATION: CT chest w con DATE: 04/24/2020 08:41 INDICATION: Abnormal findings in lung field, history of biopsy-proven chronic necrotizing granulomato us inflammation of the lower lobes. TECHNIQUE: Transaxial computed tomographic images of the chest were obtained after the administration of 75 cc of Omnipaque 350 intravenous contrast. The dose-length product (DLP) was 179.83 mGy-cm. Ite rative reconstruction was used. COMPARISON: 09/21/2019 FINDINGS: A 4.8 x 3.3 cm thick-walled cavitary mass of the left lower lobe is not significantly blunt ed, previously measuring 4.9 x 3.2 cm. A 2.8 x 1.2 cm cavitary mass of the right lower lobe is slight ly decreased in size, previously measuring 3.2 x 1.4 cm. There is been interval decrease in number of upper lobe predominant centrilobular groundglass nodules. There is a trace left pleural effusion. No pneumothorax is identified. Chronic mild mediastinal and bilateral hilar lymphadenopathy persists wi thout suspicious interval change. The heart size is normal. There is mild thoracic spondylosis. IMPRESSION: 1. Cavitary masses of the lower lobes, stable on the left and slightly decreased on the right, consis tent with biopsy-proven necrotizing granulomatous inflammation. 2. Interval decrease in number of upper lobe predominant, centrilobular groundglass nodules, consiste nt with improving atypical pneumonia versus hypersensitivity pneumonitis. Reviewed, dictated and finalized at location A. IMPRESSION: 1. Cavitary masses of the lower lobes, stable on the left and slightly decrease d on the right, consistent with biopsy-proven necrotizing granulomatous inflamm ation. 2. Interval decrease in number of upper lobe predominant, centrilobular groundg lass nodules, consistent with improving atypical pneumonia versus hypersensitiv ity pneumonitis.
== END 2020-04-24 07:55 | disposition home or self-care (01) ==
LOC: ANHIMG 08:00
PROVIDERS: PCP Emergency Medicine; Visit Provider Internal Medicine Critical Care Medicine
DX: R91.8 Other nonspecific abnormal finding of lung field (principal)
CPT/HCPCS: 71260; Q9967

== ENCOUNTER → 2020-05-10 13:35 | Outpatient (CLI) | payer BC, SELFPAY ==
--- NOTE | ~2020-05-10 | XR_ITS ---
XR hip RT min 2V, XR femur RT min 2V 05/10/2020 14:34 (accession [id number]), 05/10/2020 14:35 (accession [id number]) Indication: Right hip pain and 2 views right femur Procedure: 3 views right hip Comparison: No prior studies for comparison. Findings: Mild osteoarthritis of the right hip with loose body lateral to the joint space. No acute f racture or subluxation. No significant soft tissue abnormality. No foreign bodies. No erosive changes . Impression: 1: Mild osteoarthritis of the right hip with loose body adjacent to the joint space. Reviewed, dictated and finalized at location B. Impression: 1: Mild osteoarthritis of the right hip with loose body adjacent to the joint s pace. Impression: 1: Mild osteoarthritis of the right hip with loose body adjacent to the joint s pace.
--- NOTE | ~2020-05-10 | XR_ITS ---
EXAMINATION: XR knee RT min 4V DATE: 05/10/2020 14:34 INDICATION: Multiple joint pain. TECHNIQUE: 4 views of right knee were obtained. COMPARISON: None. FINDINGS: Bone alignment is normal. No fracture. There is mild tricompartmental osteoarthritis charac terized by tiny marginal osteophytes. No knee joint effusion. IMPRESSION: 1. Mild right knee osteoarthritis. Reviewed, dictated and finalized at location A.
--- NOTE | ~2020-05-10 | XR_ITS ---
EXAMINATION: XR knee LT min 4V DATE: 05/10/2020 14:34 INDICATION: Multiple joint pain. TECHNIQUE: 4 views of left knee were obtained. COMPARISON: None. FINDINGS: Bone alignment is normal. No fracture. There is mild tricompartmental osteoarthritis charac terized by tiny marginal osteophytes. No knee joint effusion. IMPRESSION: 1. Mild left knee osteoarthritis. Reviewed, dictated and finalized at location A.
--- NOTE | ~2020-05-10 | XR_ITS ---
XR shoulder RT min 2V, XR shoulder LT min 2V 05/10/2020 14:35 Indication: Bilateral shoulder joint pain Procedure: 4 views right shoulder Comparison: No prior studies for comparison. Findings: There are mild degenerative changes of the acromioclavicular joints. No acute fracture or t raumatic malalignment. No significant soft tissue abnormality. No radiopaque foreign bodies. Impression: 1: Mild osteoarthritis of the acromioclavicular joints. Reviewed, dictated and finalized at location B. Impression: 1: Mild osteoarthritis of the acromioclavicular joints. Impression: 1: Mild osteoarthritis of the acromioclavicular joints.
== END ==
PROVIDERS: PCP Emergency Medicine; Visit Provider Emergency Medicine
DX: M15.9 Polyosteoarthritis, unspecified (principal)
CPT/HCPCS: 73030; 73502; 73552; 73564

== ENCOUNTER 2020-08-30 13:50 | Outpatient (CLI) | payer BC, SELFPAY ==
--- NOTE | 2020-08-30 15:00 | NEURO_ITS ---
IMPRESSION: # Complains of nocturnal paresthesia and pain in hands. # Bilateral Carpal Tunnel Syndrome, right more than left, sensory more than motor. # No ulnar neuropathy. # Normal needle/EMG exam. Nerve Conduction Studies Anti Sensory Summary Table Stim Site NR Peak (ms) P-T Amp (?V) Site1 Site2 Delta-P (ms) Dist (cm) Berry (m/s) Left Median Anti Sensory (2-3nd Digit) Wrist 3.1 32.8 Wrist 2-3nd Digit 3.1 14.0 45 Wrist 3.2 56.1 Wrist 2-3nd Digit 3.1 14.0 45 Right Median Anti Sensory (2-3nd Digit) Wrist 4.6 9.7 Wrist 2-3nd Digit 4.6 14.0 30 Wrist 5.3 7.5 Wrist 2-3nd Digit 4.6 14.0 30 Left Radial Anti Sensory (Base 1st Digit) Wrist 2.4 28.2 Wrist Base 1st Digit 2.4 0.0 Right Radial Anti Sensory (Base 1st Digit) Wrist 2.5 18.1 Wrist Base 1st Digit 2.5 0.0 Left Ulnar Anti Sensory (5th Digit) Wrist 2.8 34.9 Wrist 5th Digit 2.8 14.0 50 Right Ulnar Anti Sensory (5th Digit) Wrist 2.9 75.2 Wrist 5th Digit 2.9 14.0 48 Motor Summary Table Stim Site NR Onset (ms) O-P Amp (mV) Site1 Site2 Delta-0 (ms) Dist (cm) Berry (m/s) Left Median Motor (Abd Poll Brev) Wrist 3.8 2.9 Elbow Wrist 5.1 28.0 55 Elbow 8.9 3.6 Right Median Motor (Abd Poll Brev) Wrist 3.8 3.8 Elbow Wrist 5.6 29.0 52 Elbow 9.4 3.2 Left Ulnar Motor (Abd Dig Minimi) Wrist 2.3 6.7 A Elbow Wrist 5.4 29.0 54 A Elbow 7.7 5.9 Right Ulnar Motor (Abd Dig Minimi) Wrist 2.9 3.6 A Elbow Wrist 5.7 30.0 53 A Elbow 8.6 2.7 F Wave Studies NR F-Lat (ms) L-R F-Lat (ms) Left Median (Mrkrs) (Abd Poll Brev) 30.23 1.29 Right Median (Mrkrs) (Abd Poll Brev) 31.52 1.29 Left Ulnar (Mrkrs) (Abd Dig Min) 29.94 1.01 Right Ulnar (Mrkrs) (Abd Dig Min) 30.96 1.01 EMG Side Muscle Nerve Root Ins Act Fibs Amp Dur Recrt Comment Right 1stDorInt Ulnar C8-T1 Nml Nml Nml Nml Nml Right Ext Indicis Radial (Post Int) C7-8 Nml Nml Nml Nml Nml Right Ext Digitorum Radial (Post Int) C7-8 Nml Nml Nml Nml Nml Right BrachioRad Radial C5-6 Nml Nml Nml Nml Nml Right PronatorTeres Median C6-7 Nml Nml Nml Nml Nml Right Abd Poll Brev Median C8-T1 Nml Nml Nml Nml Nml Left 1stDorInt Ulnar C8-T1 Nml Nml Nml Nml Nml Left Ext Indicis Radial (Post Int) C7-8 Nml Nml Nml Nml Nml Left Ext Digitorum Radial (Post Int) C7-8 Nml Nml Nml Nml Nml Left BrachioRad Radial C5-6 Nml Nml Nml Nml Nml Left PronatorTeres Median C6-7 Nml Nml Nml Nml Nml Left Abd Poll Brev Median C8-T1 Nml Nml Nml Nml Nml MTDD
== END 2020-08-30 13:51 | disposition home or self-care (01) ==
LOC: ANHNEURO 13:51
PROVIDERS: PCP Emergency Medicine; Visit Provider Psychiatry & Neurology Neurology
DX: R20.2 Paresthesia of skin (principal); G56.03 Carpal tunnel syndrome, bilateral upper limbs
CPT/HCPCS: 95886; 95911

== ENCOUNTER 2020-09-13 14:31 | Outpatient (CLI) | payer BC, SELFPAY ==
--- NOTE | ~2020-09-13 | CT_ITS ---
EXAMINATION: CT chest w con DATE: 09/13/2020 16:00 INDICATION: Abnormal findings of the lung field TECHNIQUE: Transaxial computed tomographic images of the chest were obtained after the administration of 75 cc of Omnipaque 350 intravenous contrast. The dose-length product (DLP) was 175.79 mGy-cm. Ite rative reconstruction was used. COMPARISON: 04/24/2020, 09/21/2019 FINDINGS: There is a chronic 5.0 x 3.0 thick walled cavitary mass of the left lower lobe which is not significantly changed. Also seen is a stable 2.8 x 1.0 cm cavitary mass of the right lower lobe. A 4 mm nodule of the left lung apex is likely infectious or inflammatory. A trace left pleural effusion is noted. Upper lobe predominant centrilobular nodules are again noted. There is no pneumothorax. Chr onic mild mediastinal and bilateral hilar lymphadenopathy is again seen. The heart size is normal. Th ere is mild thoracic spondylosis. IMPRESSION: 1. Stable chronic cavitary masses of the lower lobes, consistent with biopsy-proven necrotizing granu lomatous inflammation. 2. Chronic upper lobe predominant centrilobular groundglass nodules, consistent with atypical pneumon ia versus hypersensitivity pneumonitis. Reviewed, dictated and finalized at location A. RNET MARKETING INTERN IMPRESSION: 1. Stable chronic cavitary masses of the lower lobes, consistent with biopsy-pr oven necrotizing granulomatous inflammation. 2. Chronic upper lobe predominant centrilobular groundglass nodules, consistent with atypical pneumonia versus hypersensitivity pneumonitis.
[2020-09-13 15:55] LABS: Estimated Glomerular Filt Rate > 60
== END 2020-09-13 14:32 | disposition home or self-care (01) ==
PROVIDERS: PCP Emergency Medicine; Visit Provider Internal Medicine Critical Care Medicine
DX: R91.8 Other nonspecific abnormal finding of lung field (principal)
CPT/HCPCS: 71260; Q9967

== ENCOUNTER → 2020-09-20 11:24 | Outpatient (CLI) | payer BC, SELFPAY ==
--- NOTE | ~2020-09-20 | XR_ITS ---
EXAMINATION: XR shoulder LT min 2V DATE: 09/20/2020 12:02 INDICATION: Left shoulder and back pain. TECHNIQUE: AP internally and externally rotated, AP oblique externally rotated and axillary views of the left shoulder were obtained. COMPARISON: None FINDINGS: Normal alignment. No fracture. Glenohumeral joint is normal. Mild acromioclavicular osteoarthritis. Unchanged tiny likely degenerative ossicle without evident donor site along the anterior rim of the g lenoid. Soft tissues are unremarkable. Unchanged linear discoid atelectasis/scarring at the left infr ahilar region. IMPRESSION: Mild left acromioclavicular osteoarthritis. Reviewed, dictated and finalized at location B. CHISE SALES DIRECTOR
--- NOTE | ~2020-09-20 | XR_ITS ---
XR thoracic spine 2V DATE: 09/20/2020 12:02 INDICATION: Left upper back pain, left posterior shoulder pain. TECHNIQUE: AP, lateral, swimmer views COMPARISON: None FINDINGS: No fracture or bone destruction is evident. The thoracic pedicles are intact. No paraspinal soft tissue thickening. There is mild degenerative spurring in the lower thoracic spine. There is an asymmetric up to 2.5 cm or larger opacity overlying the left lower lobe in the retrocardi ac area; PA and lateral chest radiograph are recommended. IMPRESSION: Mild degenerative change of the thoracic spine Asymmetric density overlying the left retrocardiac area, left lower lobe; recommend PA and lateral ch est radiographs Reviewed, dictated and finalized at location A. AL CRUELTY INVESTIGATOR IMPRESSION: Mild degenerative change of the thoracic spine Asymmetric density overlying the left retrocardiac area, left lower lobe; recom mend PA and lateral chest radiographs
== END ==
PROVIDERS: PCP Emergency Medicine; Visit Provider Emergency Medicine
DX: M54.5 Low back pain (principal); M19.012 Primary osteoarthritis, left shoulder
CPT/HCPCS: 72070; 73030

== ENCOUNTER 2020-11-01 13:30 | Emergency (ER) | payer BC, SELFPAY ==
[2020-11-01] VITALS (14 sets, daily range): BP systolic 111–144; BP diastolic 76–95; PULSE 67–80; RESP 12–18; TEMP 36.7; O2SAT 99–100
--- NOTE | ~2020-11-01 | CT_ITS ---
EXAMINATION: CT abdomen pelvis wo con EXAM DATE: 11/01/2020 14:21 INDICATION: Flank pain, hematuria. TECHNIQUE: Spiral CT of the abdomen and pelvis was performed without contrast. Axial, coronal and sag ittal images were reviewed. The dose-length product (DLP) for this examination was 289.87 mGy-cm. T he exposure was tailored according to patient size (auto mA exposure control), and iterative reconstr uction (ASIR) was used as additional dose reduction technique. Comparison is made to prior examinatio n from 05/18/2017. Correlation was made with chest CT 09/13/2020. FINDINGS: There is exophytic 1.3 cm left renal cyst off the lower pole. Punctate right calyceal stone . There are 3.5 and 1 mm left calyceal stones which are nonobstructing. No ureteral stones. The pros stewart is unremarkable. Small bilateral inguinal fat-containing hernias. The bladder is unremarkable. The liver, spleen, adrenal glands and pancreas are unremarkable. Gallbladder is unremarkable. No b iliary obstruction. There is no retroperitoneal or pelvic lymphadenopathy. There is mild scattered arteriosclerotic disease. The appendix is normal. There is mild sigmoid colonic diverticulosis. There is no adjacent inflammat ory change to suggest diverticulitis. The stomach and small bowel are unremarkable. There is expecte d amount of colonic stool. No free intraperitoneal gas. The heart is normal in size. There are n o pericardial or pleural effusions, resolution of the small effusion in August. Again there is thick-walled cavitary left lower lobe mass, today measuring 4.6 x 3.4 cm, previously 4 .9 x 3.0 cm. Probably not appreciably changed compared to August. Reportedly patient had biopsy and histology was necrotizing granulomatous inflammation. There are no osteoblastic or osteolytic lesions identified. IMPRESSION: 1. No nephrolithiasis, hydronephrosis or acute intra-abdominal findings. 2. Chronic left lower lobe cavitary mass, reportedly biopsy results demonstrated necrotizing granulo matous inflammation. 3. Small bilateral nephrolithiasis. Reviewed, dictated and finalized at location B. LEVEL PROVIDER IMPRESSION: 1. No nephrolithiasis, hydronephrosis or acute intra-abdominal findings. 2. Chronic left lower lobe cavitary mass, reportedly biopsy results demonstrat ed necrotizing granulomatous inflammation. 3. Small bilateral nephrolithiasis.
--- NOTE | 2020-11-01 14:04 | ECG_ITS ---
Measurements Intervals Groom Rate: 69 P: 58 SC: 155 QRS: 34 QRSD: 84 T: 54 QT: 376 QTc: 404 Interpretive Statements SINUS RHYTHM WITH SINUS ARRHYTHMIA LOW QRS VOLTAGE IN PRECORDIAL LEADS BORDERLINE ECG Electronically Signed On 11-01-2020 14:31:05 [employer] by Benjamin Hardin D.O.
--- NOTE | 2020-11-01 14:05 | ED.GENADULT ---
HPI - General Adult General Chief complaint: Back Pain/Injury Stated complaint: flank pain Time Seen by Provider: 11/01/20 13:49 Source: patient Mode of arrival: ambulatory Limitations: no limitations History of Present Illness HPI narrative: Patient is a 50-year-old male complaining of sudden onset of left flank pain radiating to his left lower quadrant, 9 out of 10, sharp, accompanied by nausea and lightheadedness lasted for approximately 1 hour, resolved after eating a cheeseburger. Patient states that he went to his PCPs office today had a urinalysis done, told he had blood in his urine and need to go to the emergency room. Patient now states that all his symptoms resolved currently has no complaints. Patient denies any flank pain, abdominal pain, nausea, lightheadedness, chest pain, shortness of breath, urinary symptoms, fever or chills. Related Data Home Medications Medication Instructions Recorded Confirmed simvastatin 20 mg tablet 20 mg PO DAILY 04/20/20 10/04/20 omeprazole magnesium 20 mg 20 mg PO DAILY 06/01/20 10/04/20 tablet,delayed release meloxicam 7.5 mg tablet 7.5 mg PO .PRN PRN tablet 10/04/20 10/04/20 Allergies Allergy/AdvReac Type Severity Reaction Status Date / Time amoxicillin Allergy Mild rash Verified 10/04/20 09:33 Penicillins Allergy Unknown HIVES Verified 10/04/20 09:33 Review of Systems Review of Systems: All systems reviewed & are unremarkable except as noted in HPI and below Constitutional: Constitutional: Denies body ache(s), Denies chills, Denies excessive sweating, Denies fatigue, Denies fever(s), Denies headache(s), Denies lethargy, Denies malaise, Denies weakness and Denies weight loss Eyes: Eyes: Denies blurry vision, Denies change in vision and Denies loss of vision ENT: Denies dizziness, Denies ear discharge, Denies headache(s), Denies lip swelling, Denies epistaxis, Denies nasal congestion, Denies neck pain, Denies throat swelling and Denies tongue swelling Cardiovascular: Cardiovascular: Denies chest pain, Denies chest pain at rest, Denies chest pain with activity, Denies diaphoresis, Denies rapid heart rate, Denies edema, Denies irregular heart rhythm, Denies lightheadedness, Denies palpitations, Denies dyspnea and Denies dyspnea on exertion Respiratory: Respiratory: Denies chest congestion, Denies cough, Denies hemoptysis, Denies dyspnea and Denies dyspnea on exertion Gastrointestinal: Gastrointestinal: Denies abdominal pain, Denies melena, Denies hematochezia, Denies diarrhea, Denies vomiting and Denies hematemesis Musculoskeletal: Musculoskeletal: Denies abnormal gait, Denies deformity, Denies joint swelling, Denies limited range of motion, Denies neck pain and Denies numbness Neurologic: Denies Abnormal speech present, Denies abnormal gait, Denies confusion, Denies headache(s), Denies focal weakness, Denies loss of vision, Denies numbness, Denies Other visual disturbances, Denies Sensory deficit (Neuro) and Denies weakness Psychiatric: Psychiatric: Denies confusion, Denies depression, Denies auditory hallucinations, Denies homicidal ideation and Denies suicidal ideation Endocrine: Endocrine: Denies cold intolerance, Denies excessive sweating, Denies fatigue, Denies heat intolerance and Denies palpitations Hematologic/Lymphatic: Hematologic/Lymphatic: Denies easy bleeding and Denies easy bruising Allergic/Immunologic: Allergic/Immunologic: Denies lip swelling, Denies throat swelling and Denies tongue swelling PMFSH Past Medical History Medical History (Updated 11/01/20 @ 16:01 by Jose F Buchanan MD) Acute renal failure Diabetes GERD (gastroesophageal reflux disease) Histoplasmosis Histoplasmosis After an extensive workup, he was diagnosed with histoplasmosis and he finished a 6 month course of itraconazole and July 2019. Hyperlipidemia Hypertension Lung mass Osteoarthritis of hips, bilateral Rhinitis Tobacco abuse Tobacco dependence Surgical History Surgical His
[2020-11-01 14:14] LABS: Basophils Absolute Auto 0.1 K/mm3 (0.0-0.1); Basophils Percent Auto 1.5 % (0.2-1.2); Eosinophils Absolute Auto 0.3 K/mm3 (0-0.3); Eosinophils Percent Auto 2.8 % (0-4.4); Hematocrit 42.6 % (42.0-52.0); Hemoglobin 14.4 g/dL (14.0-18.0); Immature Granulocyte Absolute 0.03 K/mm3 (0.00-0.031); Immature Granulocyte Percent A 0.3 % (0-0.5); Lymphocytes Absolute Auto 3.37 K/mm3 (0.9-3.2); Lymphocytes Percent Auto 35.5 % (18.3-44.2); Mean Corpuscular HGB Conc 33.8 g/dl (32-36); Mean Corpuscular Hemoglobin 30.1 pg (26-34); Mean Corpuscular Volume 88.9 fl (80-100); Mean Platelet Volume 9.2 fl (7.4-10.4); Monocytes Absolute Auto 0.6 K/mm3 (0.1-0.6); Monocytes Percent Auto 6.4 % (2.6-8.5); Neutrophils Absolute Auto 5.1 K/mm3 (1.3-6.7); Neutrophils Percent Auto 53.5 % (45.5-73.1); Platelet Count Result 253 k/mm3 (150-375); Red Blood Count 4.79 M/mm3 (4.6-6.20); Red Cell Distribution Width 13.2 % (11.5-14.5); White Blood Count 9.5 K/mm3 (4.5-10.0)
[2020-11-01 14:24] LABS: Add Urine Microscopic? YES; Appearance Urine Clear (Clear); Bilirubin Urine Negative (Negative); Blood Urine 1+ (Negative); Color Urine Colorless (Yellow); Glucose Urine UA Negative (Negative); Ketones Urine Negative (Negative); Leukocyte Esterase Ur Negative LEU/UL (Negative); Nitrate Urine Negative (Negative); Protein Urine Negative (Negative); RBC Urine 0-2 /hpf (0-2); Urobilinogen Urine Negative mg/dL (<2.0); WBC Urine 0-3 /hpf
[2020-11-01 14:26] LABS: Anion Gap 3 mmol/L (8-16); Blood Urea Nitrogen 13 mg/dL (9-20); Calcium 9.5 mg/dL (8.4-10.2); Carbon Dioxide 32 mmol/L (22-30); Chloride 105 mmol/L (98-107); Estimated CRCL calculation 84 ml/min; Estimated Glomerular Filt Rate > 60; Glucose 83 mg/dL (75-110); Potassium 3.9 mmol/L (3.4-5.0); Sodium 140 mmol/L (137-145)
[2020-11-01 14:28] LABS: Specific Grav Ur 1.004 (1.001-1.035)
[2020-11-01] MEDS: SODIUM CHLORIDE 0.9% IV 1,000 ML 999 ML IV CONT (14:46)
== END 2020-11-01 16:35 | disposition home or self-care (01) ==
LOC: ANHED 16:06
PROVIDERS: Emergency Provider Emergency Medicine; PCP Emergency Medicine
DX: R31.9 Hematuria, unspecified (principal); R10.9 Unspecified abdominal pain; E11.9 Type 2 diabetes mellitus without complications; E78.5 Hyperlipidemia, unspecified; I10 Essential (primary) hypertension; M19.90 Unspecified osteoarthritis, unspecified site
CPT/HCPCS: 36415; 74176; 80048; 81001; 85025; 93005; 96360; 99284; J7030

== ENCOUNTER 2021-08-31 10:22 | Outpatient (CLI) | payer BC, SELFPAY ==
--- NOTE | ~2021-08-31 | US_ITS ---
EXAMINATION: US soft tissue head and neck EXAM DATE: 08/31/2021 11:08 INDICATION: Bumps In Throat, Mass And Neck Bumps In Throat. TECHNIQUE: Multiple grayscale and Doppler images of the left neck symptomatic region were obtained (amee ryan a technologist who performed the scan) and subsequently reviewed. There is no prior study for hortencia chacko. FINDINGS: Left neck area of pain demonstrates lymph node measuring 1.2 x 0.7 x 1.3 cm with expected fatty hilum , consistent with reactive etiology. This is the largest lymph node identified. No abscess. IMPRESSION: Left cervical lymph nodes within normal limits, probably reactive. Reviewed, dictated and finalized at location A. OR AIR DIRECTOR
== END 2021-08-31 10:23 | disposition home or self-care (01) ==
PROVIDERS: PCP Emergency Medicine; Visit Provider Emergency Medicine
DX: R22.1 Localized swelling, mass and lump, neck (principal)
CPT/HCPCS: 76536

== ENCOUNTER → 2022-04-23 13:40 | Outpatient (CLI) | payer BC, SELFPAY ==
--- NOTE | ~2022-04-23 | CT_ITS ---
EXAMINATION: CT abdomen pelvis wo/w con DATE: 04/23/2022 14:46 INDICATION: Microhematuria TECHNIQUE: Computed tomography (CT) of the abdomen and pelvis was performed without and subsequently with 130 CC Omnipaque 350 intravenous contrast. Automated exposure control and iterative reconstructi on technique were employed. Exam dose: 1366.66 mGy-cm total exam DLP. COMPARISON: 11/01/2020 CT abdomen pelvis 05/14/2017 CT abdomen pelvis FINDINGS: Normal heart size. No pericardial or pleural effusion. Up to 4.3 cm cavitary mass lesion at the posterior left lower lobe and approximately 6 x 26 mm opacit y in the posterior right lower lobe. Emphysematous changes of the lungs. Approximately 5.7 mm hepatic cyst. The liver is otherwise unremarkable. The gallbladder is present. N o gallbladder wall thickening or pericholecystic fluid or fat stranding. No bile duct or pancreatic d uct dilatation. No pancreatic mass lesion or calcification. Normal splenic size. Normal morphology of the adrenal glands. 1 cm and 4.5 mm right renal cysts. 10 mm left renal cyst. Exophytic 1.5 cm chronic cyst at inferior tip of the left kidney. 3.5 mm nonobstructing left mid renal calculus. Suggestion of a subtle pinpoint nonobstructing lower p ole left renal calculus. Pinpoint nonobstructing mid right renal calculus. No ureteral calculus or hydroureteronephrosis. There is prostate enlargement. Moderate diffuse thickening of the urinary bladder wall. There is atherosclerotic calcification but normal caliber of the abdominal aorta and iliac arteries. No intraperitoneal or retroperitoneal or pelvic mass lesion or adenopathy or ascites. Normal appendix. Mild colonic diverticulosis; no CT evidence of diverticulitis. No bowel obstruction, bowel wall thickening, pneumatosis or intraperitoneal free air. Bilateral fat-containing inguinal hernias. No suspicious osteolytic or osteoblastic lesions. IMPRESSION: Prostate enlargement and moderate thickening of the urinary bladder wall Emphysema Bilateral lower lobe lesions Small hepatic cysts Bilateral renal cysts Mild nonobstructive nephrolithiasis Mild colon diverticulosis; no diverticulitis Reviewed, dictated and finalized at Location A. Reviewed, dictated and finalized at location B. IMPRESSION: Prostate enlargement and moderate thickening of the urinary bladde r wall Emphysema Bilateral lower lobe lesions Small hepatic cysts Bilateral renal cysts Mild nonobstructive nephrolithiasis Mild colon diverticulosis; no diverticulitis
[2022-04-23 14:26] LABS: Estimated Glomerular Filt Rate > 60
== END ==
PROVIDERS: PCP Emergency Medicine; Visit Provider Nurse Practitioner
DX: R31.29 Other microscopic hematuria (principal); N40.0 Benign prostatic hyperplasia without lower urinary tract symptoms; J43.9 Emphysema, unspecified; K76.89 Other specified diseases of liver; N28.1 Cyst of kidney, acquired; N20.0 Calculus of kidney; K57.90 Diverticulosis of intestine, part unspecified, without perforation or abscess without bleeding
CPT/HCPCS: 74178; Q9967

== ENCOUNTER → 2022-04-23 13:49 | Outpatient (CLI) | payer BC, SELFPAY ==
--- NOTE | ~2022-04-23 | XR_ITS ---
XR chest 2V DATE: 04/23/2022 14:12 INDICATION: Lung mass TECHNIQUE: 2 views COMPARISON: 09/13/2020 CT chest 04/24/2020 CT chest FINDINGS: Approximately 4 cm cavitary mass is again noted posteriorly in the left lower lobe. This wa s reported to be biopsy-proven necrotizing granulomatous inflammation on 04/24/2020 CT chest examinati on. The lungs are moderately hyperinflated. No pulmonary infiltrate or consolidation, pleural effusion or pulmonary vascular congestion or pneumothorax is detected. Included skeletal structures are unremarkable. Normal heart size. No hilar or mediastinal enlargement . IMPRESSION: Cavitary left lower lobe mass; reported biopsy-proven diagnosis of necrotizing granulomat ous infection. Reviewed, dictated and finalized at location B. IMPRESSION: Cavitary left lower lobe mass; reported biopsy-proven diagnosis of necrotizing granulomatous infection.
== END ==
PROVIDERS: PCP Emergency Medicine; Visit Provider Emergency Medicine
DX: R91.8 Other nonspecific abnormal finding of lung field (principal)
CPT/HCPCS: 71046

== ENCOUNTER 2022-08-02 06:44 | Outpatient (CLI) | payer BC, SELFPAY ==
--- NOTE | ~2022-08-02 | CT_ITS ---
EXAMINATION: CT cervical spine wo con DATE: 08/02/2022 07:08 INDICATION: Neck pain. TECHNIQUE: Computed tomography (CT) of the cervical spine was performed without intravenous contrast. Automated exposure control and iterative reconstruction technique were employed. The dose-length pro duct was 459.52 mGy-cm. COMPARISON: Chest CT 09/13/2020 FINDINGS: There is mild emphysema. Again seen are innumerable 1 mm nodules in the lungs, consistent w ith respiratory bronchiolitis interstitial lung disease. There is mild mucosal thickening in the para nasal sinuses. Partially visualized is dental disease. There is 4 degrees dextrocurvature of cervicot horacic spine. Vertebral body heights are normal. There is mildly decreased disc height at C4-C5. The following disc levels are specifically discussed: C2-C3: There is mild right uncovertebral joint osteoarthritis. There is mild bilateral facet joint os teoarthritis. There is no neural foraminal stenosis. There is no central canal stenosis. C3-C4: There is mild bilateral uncovertebral joint osteoarthritis. There is mild bilateral facet join t osteoarthritis. There is mild bilateral neural foraminal stenosis. There is no central canal stenos is. C4-C5: There is mild bilateral uncovertebral joint osteoarthritis. There is no facet joint osteoarthr itis. There is mild left neural foraminal stenosis. There is no central canal stenosis. C5-C6: There is no uncovertebral joint osteoarthritis. There is no facet joint osteoarthritis. There is no neural foraminal stenosis. There is no central canal stenosis. C6-C7: There is mild left uncovertebral joint osteoarthritis. There is no facet joint osteoarthritis. There is no neural foraminal stenosis. There is no central canal stenosis. C7-T1: There is no uncovertebral joint osteoarthritis. There is mild bilateral facet joint osteoarthr itis. There is no neural foraminal stenosis. There is no central canal stenosis. IMPRESSION: 1. Mild cervical spondylosis. Reviewed, dictated and finalized at location A. RUCTOR HAIRSPRING
--- NOTE | ~2022-08-02 | CT_ITS ---
EXAMINATION: CT brain wo con DATE: 08/02/2022 07:08 INDICATION: Headache, neck pain TECHNIQUE: Computed tomography (CT) of the head was performed without intravenous contrast. The mA wa s adjusted according to patient size. Iterative reconstruction technique was employed. Exam dose: 60 5.33 mGy-cm total exam DLP. COMPARISON: None FINDINGS: Mild carotid siphon internal carotid artery calcification. No intracranial mass lesion or hemorrhage or cerebrovascular accident. No midline shift or mass effec t. Normal ventricular size. No subdural or epidural hematoma is detected. No orbital mass lesion. Patchy soft tissue thickening the ethmoid air cells bilaterally. Minimal mucoperiosteal thickening of the left sphenoid sinus. The mastoid air cells are normally developed and aerated. No fracture or bone destruction of the cranial vault. IMPRESSION: Mild cerebral atherosclerosis; no acute intracranial abnormality Reviewed, dictated and finalized at Location A. Reviewed, dictated and finalized at location B. ED CLOTH TAPER
== END 2022-08-02 06:45 | disposition home or self-care (01) ==
PROVIDERS: PCP Emergency Medicine; Visit Provider Emergency Medicine
DX: M47.892 Other spondylosis, cervical region (principal); I67.2 Cerebral atherosclerosis
CPT/HCPCS: 70450; 72125

== ENCOUNTER 2022-08-14 16:08 | Outpatient (CLI) | payer BC, SELFPAY ==
--- NOTE | ~2022-08-14 | US_ITS ---
EXAMINATION: US carotid duplex BI DATE: 08/14/2022 16:47 INDICATION: Headache and blurry vision TECHNIQUE: Grayscale, color Doppler, and pulsed Doppler images of the cervical carotid arteries were obtained. The degree of vessel stenosis is placed in one of the following categories: normal, <50%, 5 0-69%, >=70% but less than near-occlusion, near-occlusion, or total occlusion. Note that percent sten osis relative to normal distal artery lumen diameter is indirectly measured from velocity measurement s as described by Bala, et al. Radiology 2003; [id number]. COMPARISON: None. FINDINGS: RIGHT: The right common carotid artery (CCA) peak systolic velocity (PSV) is 100 cm/s. The right internal ca rotid artery (ICA) PSV is 106 cm/s. The right ICA end-diastolic velocity (EDV) is 33.3 cm/s. The righ t ICA/CCA PSV ratio is 1.1. Grayscale and color Doppler images yield an estimate of less than 50% jef meter reduction from plaque in the ICA. The external carotid artery (ECA) PSV is 108 cm/s. There is a ntegrade flow in the right vertebral artery. LEFT: The left CCA PSV is 97 cm/s. The left ICA PSV is 88 cm/s. The left ICA EDV is 34 cm/s. The left ICA/C CA PSV ratio is 0.9. Grayscale and color Doppler images yield an estimate of less than 50% diameter r eduction from plaque in the ICA. The ECA PSV is 118 cm/s. There is antegrade flow in the left vertebr al artery. IMPRESSION: 1. <50% stenosis in the right internal carotid artery. 2. <50% stenosis in the left internal carotid artery. Reviewed, dictated and finalized at location F. CLE BODY SANDER
[2022-08-14 16:33] LABS: Hematocrit 43.2 % (42.0-52.0); Hemoglobin 14.8 g/dL (14.0-18.0); Mean Corpuscular HGB Conc 34.3 g/dl (32-36); Mean Corpuscular Hemoglobin 30.1 pg (26-34); Mean Corpuscular Volume 87.8 fl (80-100); Mean Platelet Volume 9.1 fl (7.4-10.4); Platelet Count Result 240 k/mm3 (150-375); Red Blood Count 4.92 M/mm3 (4.6-6.20); Red Cell Distribution Width 12.9 % (11.5-14.5); White Blood Count 10.5 K/mm3 (4.5-10.0)
[2022-08-14 16:42] LABS: Cholesterol 205 mg/dL (0-200); HDL Direct 30 mg/dL; Triglycerides 190 mg/dL (<150)
[2022-08-14 16:52] LABS: LDL Cholesterol Direct 127 mg/dL
[2022-08-14 17:13] LABS: Vitamin D 25 Hydroxy 39.9 ng/mL
== END 2022-08-14 16:09 | disposition home or self-care (01) ==
PROVIDERS: PCP Emergency Medicine; Visit Provider Emergency Medicine
DX: R51.9 Headache, unspecified (principal); H53.8 Other visual disturbances
CPT/HCPCS: 36415; 80061; 82306; 85027; 93880

== ENCOUNTER 2022-11-01 08:36 | Outpatient (CLI) | payer BC, SELFPAY ==
--- NOTE | ~2022-11-01 | XR_ITS ---
EXAMINATION: XR abdomen/kub 1V DATE: 11/01/2022 08:57 INDICATION: Calcium kidney stone. TECHNIQUE: A supine view of the abdomen on 2 radiographs was obtained. COMPARISON: CT abdomen and pelvis 04/23/2022 FINDINGS: There are no dilated loops of bowel. There is no visible urolithiasis. IMPRESSION: 1. No visible urolithiasis. Reviewed, dictated and finalized at location A. STOCK MAKER IMPRESSION: 1. No visible urolithiasis.
== END 2022-11-01 08:37 | disposition home or self-care (01) ==
PROVIDERS: PCP Emergency Medicine; Visit Provider Urology
DX: N20.0 Calculus of kidney (principal)
CPT/HCPCS: 74018